=== PATIENT | male | born 1970 | race Caucasian/White ===

== ENCOUNTER → 2017-12-14 | Outpatient (CLI) | payer OTHER ==
--- NOTE | 2017-12-14 09:00 | RADIOLOGY REPORT (SQ) ---
EXAM DESCRIPTION: U/S ABDOMEN LIMITED W/O DOP COMPLETED DATE/TIME: 12/14/2017 8:30 am REASON FOR STUDY: ABD PAIN (R10.9) R10.9 UNSPECIFIED ABDOMINAL PAIN COMPARISON: None. TECHNIQUE: Dynamic and static grayscale images acquired of the abdomen and recorded on PACS. Additio nal selected color Doppler and spectral images recorded. LIMITATIONS: None. FINDINGS: PANCREAS: No masses. Visualized pancreatic duct normal caliber. LIVER: Fatty liver. The liver measures 17.7 cm in length. LIVER VASCULATURE: Normal directional flow of the main portal vein and hepatic veins. GALLBLADDER: No stones. The gallbladder wall measures 2.3 mm, normal wall thickness. No pericholecys tic fluid. ULTRASOUND-DETECTED JAIMES'S SIGN: Negative. INTRAHEPATIC DUCTS AND COMMON DUCT: CBD measures 5.5 mm in diameter, normal. The intrahepatic ducts normal caliber. No filling defects. INFERIOR VENA CAVA: Normal flow. AORTA: No aneurysm. RIGHT KIDNEY: The right kidney measures 12.7 cm in length, normal size. Normal echogenicity. No elie d or suspicious masses. No hydronephrosis. No calcifications. PERITONEAL AND RIGHT PLEURAL SPACE: No ascites or effusions. OTHER: No other significant findings. IMPRESSION: 1 Fatty liver. TECHNICAL DOCUMENTATION: JOB ID: [id number] [email or web address]- All Rights Reserved Reading location - IP/workstation name: [email or web address]
[2017-12-14 10:16] LABS: HEMOGLOBIN 16.9 g/dL (13.5-17.0); MEAN CORPUSCULAR HEMOGLOBIN 27.5 pg (27.0-33.4); MEAN CORPUSCULAR HGB CONC 33.1 g/dL (32.0-36.0); MEAN CORPUSCULAR VOLUME 83 fl (80-97); PLATELET COUNT 236 10^3/uL (150-450); RED BLOOD COUNT 6.15 10^6/uL (4.35-5.55); RED CELL DISTRIBUTION WIDTH 14.1 % (11.5-14.0); WHITE BLOOD COUNT 7.3 10^3/uL (4.0-10.5)
[2017-12-14 10:49] LABS: ALANINE AMINOTRANSFERASE 40 U/L (21-72); ALBUMIN 4.5 g/dL (3.5-5.0); ALKALINE PHOSPHATASE 74 U/L (38-126); ANION GAP 11 (5-19); ASPARTATE AMINO TRANSFERASE 27 U/L (17-59); BILIRUBIN,DIRECT 0.3 mg/dL (0.0-0.4); BILIRUBIN,TOTAL 0.7 mg/dL (0.2-1.3); BLOOD UREA NITROGEN 19 mg/dL (7-20); CALCIUM 9.4 mg/dL (8.4-10.2); CARBON DIOXIDE 29 mmol/L (22-30); CHLORIDE 101 mmol/L (98-107); CHOLESTEROL 225.86 mg/dL (0-200); GLUCOSE 101 mg/dL (75-110); POTASSIUM 4.9 mmol/L (3.6-5.0); SODIUM 141.2 mmol/L (137-145); TOTAL PROTEIN 7.5 g/dL (6.3-8.2); TRIGLYCERIDES 175 mg/dL (<150)
[2017-12-14 11:00] LABS: DIRECT LDL 157 mg/dL (<100)
[2017-12-16 13:35] LABS: COTININE 152.2 ng/mL (.); NICOTINE 10.8 ng/mL (.)
== END ==
LOC: RAD 07:13
PROVIDERS: ATTEND Specialist
DX: R10.9 Unspecified abdominal pain (principal); E66.01 Morbid (severe) obesity due to excess calories; E11.8 Type 2 diabetes mellitus with unspecified complications; K76.0 Fatty (change of) liver, not elsewhere classified; Z72.0 Tobacco use
CPT/HCPCS: 36415; 84443; 85027; 80053; 83036; 82306; 80061; 83970; 76705; G0480; 80323

== ENCOUNTER 2018-05-13 08:47 | Day surgery (SDC) | payer OTHER ==
[~2018-05-13 08:47] MED LIST: RINGERS SOLUTION 1,000 ML IV PRN
[2018-05-13] MEDS ORDERED: FENTANYL CITRATE INJ/PF 100 MCG/2 ML AMPUL ONE (10:18)
[2018-05-13] MEDS ORDERED: PROPOFOL INJ 200 MG/20 ML VIAL IV ONE ×2 (10:18→10:57)
[2018-05-13] MEDS ORDERED: ONDANSETRON HCL INJ/PF 4 MG/2 ML SDV IV PRN (10:32)
[2018-05-13] MEDS ORDERED: FENTANYL CITRATE INJ/PF 100 MCG/2 ML AMPUL IV PRN ×3 (10:32)
[2018-05-13] MEDS ORDERED: DIPHENHYDRAMINE HCL 50 MG/ML VIAL IV PRN (10:32)
[2018-05-13] MEDS ORDERED: PROMETHAZINE HCL INJ 25 MG/1 ML VIAL IV PRN ×2 (10:32)
[2018-05-13] MEDS ORDERED: MEPERIDINE HCL/PF INJ 25 MG/1 ML DISP.SYRIN IV PRN (10:32)
[2018-05-13] MEDS ORDERED: MIDAZOLAM 2 MG/2 ML INJ ONE (10:34)
[2018-05-13] MEDS ORDERED: ACETAMINOPHEN 1,000 MG/100 ML RTUPB IV ONE (11:20)
[2018-05-13] MEDS: HYDROMORPHONE HCL INJ/PF 2 MG/ML AMPULE ONE ×2 (11:25→11:35)
[2018-05-13 13:23] VITALS: BP 130/81
--- NOTE | 2018-05-17 16:51 | Discharge Summary ---
Discharge Summary (SDC) - Discharge Final Diagnosis: Rectal bleeding, internal hemorrhoids Date of Surgery: 05/13/18 Discharge Date: 05/13/18 Condition: Stable Forms: ASU Anesthesia D/C Instruction, Discharge POC-Surgical Service Referrals: TATIANA TURPIN MD [ACTIVE STAFF] - Discharge Diet: As Tolerated Respiratory Treatments at Home: Deep Breathing/Coughing, Incentive Spirometer Discharge Activity: Activity As Tolerated, Balance Activity w/Rest, No Driving, No Lifting Over 10 Pounds, No Lifting/Push/Pulling, No tub bath Home Care Assistance: None Needed Report the Following to Your Physician Immediately: Shortness of Breath, Vomiting, Increase in Pain, Fever over 101 Degrees, Unusual Bleeding, Large Clots, IV Site Infection Signs
--- NOTE | 2018-05-17 16:56 | Operative Report ---
Nonrecallable Operative Report DATE OF SURGERY: 05/13/18 PREOPERATIVE DIAGNOSIS: Rectal bleeding POSTOPERATIVE DIAGNOSIS: 1. Poor prep. 2. Internal hemorrhoids OPERATION: 1. Colonoscopy to the cecum. 2. Rubber band ligation of internal hemorrhoids x3. SURGEON: TATIANA TURPIN ANESTHESIA: LMAC TISSUE REMOVED OR ALTERED: None COMPLICATIONS: Inadequate prep ESTIMATED BLOOD LOSS: Minimal PROCEDURE: Procedure in detail: After informed consent was obtained, the patient was brought into the operating room and laid in the left lateral decubitus position. The endoscope was inserted up the rectum, sigmoid colon, descending colon, across the transverse colon, down the ascending colon, and into the cecum. The ileocecal valve and appendiceal orifice were identified. The scope was then withdrawn, circumferentially noting the mucosa. The prep was poor. Only approximately 70% of the colonic mucosa was completely surveyed. There was residual solid stool left in the colon. The scope was pulled back past the ascending colon, transverse colon, down the descending colon, sigmoid colon, and into the rectum. Of the mucosa surveyed, there were no obvious mucosal irregularities. There were certainly no large masses, tumors, or strictures. In the rectum, a retroflexion maneuver was performed. This identified enlarged internal hemorrhoids. The scope was straightened, air was suctioned from the rectum, the scope was removed, and this portion of the procedure was concluded. Attention was then turned to placement of the rubber bands on his internal hemorrhoids. The anoscope was inserted. Enlarged hemorrhoids were found in the right anterior and right posterior positions. 3 rubber bands were placed ( one in the right anterior position and 2 in the right posterior position). After this was completed, the endoscope was removed, and the procedure was concluded. All sponge, instrument, and needle counts were correct x2. Condition: Stable. Recommendation: Repeat colonoscopy in the next 1-2 years to ensure no small polyps were missed.
== END 2018-05-13 13:09 | disposition home or self-care (01) ==
LOC: OROUT 08:47
PROVIDERS: ATTEND Surgery
DX: K64.9 Unspecified hemorrhoids (principal); K62.5 Hemorrhage of anus and rectum; I10 Essential (primary) hypertension; E78.00 Pure hypercholesterolemia, unspecified; Z79.899 Other long term (current) drug therapy; Z79.82 Long term (current) use of aspirin
CPT/HCPCS: 45378; 46221; J2250; J3010; J1170; J2704; J0131; 811

== ENCOUNTER → 2018-07-01 | Outpatient (CLI) | payer BC, OTHER | LOC: OD 10:34 | PROVIDERS: ATTEND Specialist | DX: Z72.0 Tobacco use (principal) | CPT/HCPCS: 36415; G0480; 80323 ==